=== PATIENT | female | born 1995 | race Caucasian/White ===

== ENCOUNTER 2019-07-26 10:09 | Emergency (ER) | payer OTHER, SELFPAY ==
[2019-07-26 10:18] VITALS: BP 157/98; PULSE 112; RESP 16; TEMP 36.7; O2SAT 98; BMI 32.6
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
--- NOTE | 2019-07-26 10:24 | XR_ITS ---
PROCEDURE: XR CHEST 2V CLINICAL HISTORY: cough/sore throat COMPARISON: No exams were available for comparison FINDINGS: The cardiomediastinal silhouette and pulmonary vascularity are within normal limits. The lungs are clear without infiltrates, suspicious nodules, or pleural effusions. No acute bony abnormalities. IMPRESSION: No acute findings. Dictated by: Mal Lagunas MD 07/26/2019 11:27 Electronically signed by Mal Lagunas MD in [place] 07/26/2019 11:27
--- NOTE | 2019-07-26 10:33 | PC.NURSE ---
Pt to rad
[2019-07-26 10:36] LABS: Strep Scrn Group A (Rapid) Positive (Negative)
[2019-07-26 11:00] VITALS: BP 154/70; PULSE 98; RESP 16; TEMP 36.8; O2SAT 98
== END 2019-07-26 11:01 | disposition home or self-care (01) ==
PROVIDERS: Emergency Provider Emergency Medicine
DX: J02.0 Streptococcal pharyngitis (principal)
CPT/HCPCS: 71046; 87275; 87276; 87430; 99283